=== PATIENT | female | born 1995 | race Caucasian/White ===

== ENCOUNTER 2018-11-09 19:05 | Inpatient (IN) | payer OTHER, SELFPAY ==
[2018-11-09] MEDS: Lactated Ringers 1,000 ML 50 ML IV (20:45)
[2018-11-09 21:17] LABS: Hematocrit 39.2 % (37-47); Hemoglobin 13.1 g/dl (12.0-15.0); Mean Corp Hgb Conc 33.4 g/gl (32-36); Mean Corpuscular Hgb 29.5 pg (27.0-32.0); Mean Corpuscular Volume 88.3 fL (81-99); Mean Platelet Vol. 10.3 fl (6.2-12.0); Platelet Count 236 K/mm3 (150-450); RBC Distribution Width CV 12.8 % (11.6-14.6); RBC Distribution Width SD 41.2 fl (35.1-43.9); Red Blood Count 4.44 M/mm3 (4.2-5.4)
[2018-11-09 21:22] LABS: Scan Indicated on CBC? Y/N NO
[2018-11-09] MEDS: miSOPROStol 25 MCG TABLET VAGINAL (21:38)
[2018-11-09] MEDS: Mag Hydrox/Al Hydrox/Simeth 30 ML UDC PO (22:03)
[2018-11-10] MEDS: miSOPROStol 25 MCG TABLET VAGINAL (01:51)
--- NOTE | 2018-11-10 10:04 | HP.PCM_ITS ---
- Problem List (1) Post-dates Status: Acute (2) Rh negative status during Status: Chronic (3) Depression affecting in third trimester, antepartum Status: Chronic History Date of Admission: 11/09/18 Final FLAVIO: 11/01/18 Final FLAVIO Source: US <20 weeks Gestational age: 41 Weeks and 2 Days History of this : This is a 23 year-old, G [], P [], at 41 weeks gestational age. Allergies latex Allergy (Verified 11/09/18 21:39) Rash tree nut Allergy (Verified 11/09/18 21:39) Anaphylaxis Home Medications: Home Medications Vits [Prenatabs FA] 1 tablet PO DAILY 11/09/18 Smoking Status: Never smoker Alcohol: None Number of Fetus(es): 1 Heart Tracin baseline, moderate variability, + accels, no decels. Overnight 2 minute prolonged variable decel with shree to 120 noted, spontaneous recovery. TOCO Analysis: Irregular ctx at IOL initiation, palpate mild to moderate. Currently ctx q 3-4 minutes, palpate mild to moderate in strength History Past Pregnancies: Past Pregnancies Delivery Date Name GA/Weeks Outcome Route Weight Gender Labor Length Anesthesia Delivery Location Provider FOB Labs: HIV NR, HepBsAG Neg, T+S = O Neg, CBC = 12.7/39.0, Syphilis - Neg, Rubella Immune, GC/CT = Neg/ Neg, Urine Tox Neg, Urine culture Neg in 1st trimester and then +>100,000 E. Coli in 3rd trimester - treated, 1 hour GCT= 87, GBS Neg Expected Delivery Method: Spontaneous Vaginal Describe any other labor & delivery plans:: Desires Nitrous Oxide during Vaginal Exam, Planning for an Epidural Number of Visits: 16 Review of Systems Constitutional: Denies: Chills, Fever, Weight Change HEENT: Denies: Head Aches, Sinus Congestion, Sinus Drainage Cardiovascular: Denies: Chest Pain, Palpitations Respiratory: Denies: Cough, Shortness of breath at rest, Sputum production Gastrointestinal: Denies: Nausea, Vomiting Genitourinary: Denies: Dysuria, Frequency, Urgency Gynecological: Denies: Vaginal discharge Musculoskeletal: Denies: Joint Pain, Joint Tenderness Skin: Denies: Rash, Wounds Neurological: Denies: Numbness, Tingling, Focal weakness Psychiatric: Denies: Anxiety, Depression, Homicidal Ideations, Suicidal Ideations Hematologic/ Lymphatic: Denies: Easy Bruising, Easy Bleeding Physical Exam Vitals: See Nursing Note for Vitals - VSS, Afebrile General: Alert, Oriented x3 HEENT: Atraumatic Cardiovascular: Regular rate, Regular Rhythm Lungs: Normal air movement Abdomen: Non Tender, Gravid Extremities:: No edema Neurological: Cranial nerves II-XII grossly intact, Deep Tendon Reflexes 2+/4 and Symmetrical MANAGER PERFORMANCE IMPROVEMENT: Normal external genitalia Estimated gestational size: Appropriate for gestational size Presentation: Cephalic Cervix Dilation (cm): 2.5 - On admission - pateint was /-4 per RN Station: -2 Effacement (%): 80 Assessment/Plan All Active Problems Post-dates (Acute) This is a 23 year-old, G [1], P [0], at 41 weeks gestational age, IOL Postdates, Category I-II FHT. P: 1) Patient admitted last night by Dr. Herb MONZON, Dr. Ortiz OB back-up physician for this provider notified of admission and patient status 2) Pitocin IV per protocol for labor augmentation 3) Encourage PO hydration and ambulation 4) Reassess cervix PRN with changes in maternal and status Carmela Yin APRN-YUSEF
[2018-11-10] MEDS: Oxytocin 30 units/NS 500 ml 30 UNITS/500 ML IV.SOLN IV (10:25)
--- NOTE | 2018-11-10 13:38 | PCM.PN.BLA ---
Progress Note S: Patient sitting up at the bedside, moving freely around room and oscillating between bed and birthing ball. Patient moving easily during contractions. Pitocin IV for labor augmentation still infusing, currently at 5 milliunits/min. Patient planning an epidural but declines having one placed at this time. O: VSS, Afebrile FHT baseline 145, mild to moderate variability, + accels, occasional early decels noted CTx q 2-4 minutes, lasting 60 seconds, palpate mild to moderately strong SVE = Deferred at this time, patient declines exam A: IOL @ 41+2 weeks, Pitocin Labor Augmentation, Category I-II FHT P: 1) Continue present management 2) Epidural on request 3) SVE per patient request or PRN with change in maternal or status Carmela Yin APRN-YUSEF
[2018-11-10] MEDS: Lactated Ringers 1,000 ML 50 ML IV ×2 (16:30→20:09)
--- NOTE | 2018-11-10 17:10 | PCM.PN.OB ---
Patient Problems: Active and Suspected Problems Post-dates (Acute) Subjective: Patient comfortable after receiving epidural. Decision mutually made to check patient's cervix at this time. IV pitocin is currently at 7 milliunits and patient has been fam regularly over last 2-3 hours. Objective: VSS, Afebrile Baby LOP by Feliz'kayden, EFW 8# FHT baseline 150, moderate variability, rare accels, rare early decels noted Ctx q 2-3 minutes, palpate moderate to strong SVE = 5-6/90/-2, BBOW - Physical Exam General: Alert, Oriented x3 Lungs: Normal air movement Cardiovascular: Regular rate, Regular Rhythm Abdomen: Non Tender, Gravid Extremities: No edema Psych/Mental Status: Normal Affect, Appropriate Weight: 175 lb 4.28 oz Body Mass Index (BMI) 30.0 Intake and Output for Last 24 Hours 11/08/18 11/09/18 11/10/18 23:59 23:59 23:59 Intake Total 600 / 600 993 / 993 Output Total 500 / 500 Balance 600 / 600 493 / 493 Laboratory Tests Past 24 Hrs 11/09/18 11/09/18 11/09/18 20:45 20:45 20:45 WBC 12.0 H RBC 4.44 Hgb 13.1 Hct 39.2 MCV 88.3 MCH 29.5 MCHC 33.4 RDW 12.8 RDW Differential 41.2 Plt Count 236 MPV 10.3 Blood Type O NEGATIVE Antibody Screen TNP Cancelled 11/09/18 20:45 WBC RBC Hgb Hct MCV MCH MCHC RDW RDW Differential Plt Count MPV Blood Type TNP Antibody Screen NEGATIVE Medical Necessity - Tobacco Use Smoking Status: Never smoker Assessment/Plan All Active Problems Post-dates (Acute) 23 y/o @ 41+2weeks, Category I Tracing, Active Labor, Pitocin Labor Augmentation P: 1) Continue present management 2) Titration of IV pitocin if needed 3) Dr. Ortiz back-up OB notified of patient status Carmela ROLLE
[2018-11-10] MEDS: Ondansetron 4 MG/2 ML Vial IV (18:05)
--- NOTE | 2018-11-10 19:53 | PCM.PN.OB ---
Patient Problems: Active and Suspected Problems Post-dates (Acute) Subjective: Patient remains comfortable with epidural, decision mutually made to check patient's cervix at this time. Objective: FHT baseline 145, moderate variability, + accels, rare late decel, occasional early decel noted Ctx q 2-3 minutes, palpate strong SVE = 9.5/100/-1, BBOW --> AROM for clear fluid - Physical Exam General: Alert, Oriented x3, Cooperative HEENT: Atraumatic, Normocephalic Neck: Supple, No JVD, Negative Carotid Bruits Lungs: Normal air movement Cardiovascular: Regular rate, No murmurs Abdomen: Soft, Gravid - Baby CELIA at this time by Ada, EFW = 8# Extremities: No edema, Capillary Refill Less than 3 Seconds Skin: No rashes, No breakdown Musculoskeletal: No Tenderness to Palpation of Joints or Extremities Neurological: Cranial nerves II-XII grossly intact Psych/Mental Status: Normal Affect, Appropriate Weight: 175 lb 4.28 oz Body Mass Index (BMI) 30.0 Intake and Output for Last 24 Hours 11/08/18 11/09/18 11/10/18 23:59 23:59 23:59 Intake Total 600 / 600 3276 / 3276 Output Total 1300 / 1300 Balance 600 / 600 1975 / 1975 Laboratory Tests Past 24 Hrs 11/09/18 11/09/18 11/09/18 20:45 20:45 20:45 WBC 12.0 H RBC 4.44 Hgb 13.1 Hct 39.2 MCV 88.3 MCH 29.5 MCHC 33.4 RDW 12.8 RDW Differential 41.2 Plt Count 236 MPV 10.3 Blood Type O NEGATIVE Antibody Screen TNP Cancelled 11/09/18 20:45 WBC RBC Hgb Hct MCV MCH MCHC RDW RDW Differential Plt Count MPV Blood Type TNP Antibody Screen NEGATIVE Medical Necessity - Tobacco Use Smoking Status: Never smoker Assessment/Plan All Active Problems Post-dates (Acute) A: 23 y/o @ 41+2 weeks, Transition stage of Labor, Category I-II FHT P: 1) Continue present management 2) Anticipate Carmela Yin APRN-YUSEF
--- NOTE | 2018-11-10 23:07 | PCM.PN.BLA ---
Progress Note Patient found to be C/C/0 + 1 station, started to push with patient at 2201. Consecutive late decels noted. Patient repositioned, fluid bolus given, pitocin turned off and O2 mask applied. Dr. Ortiz updated on patient status and heart rate tracing at this time. O: VSS, Afebrile. Last temp = 98.9 F FHT baseline 160, mild to moderate variability, + accels, consecutive late decels noted. Resolve when patient is not pushing and improve with position changes to sidelying Ctx q 2 minutes, palpate strong SVE = C/C/+1 A: 23 y/o @ 41+2weeks, Second Stage of Labor, Category II Tracing P: 1) Dr. Ortiz updated on tracing, will continue to push with patient at this time 2) Anesthesia to room to turn down patient's epidural 3) Encourage position changes - side-lying, H+K and upright positioning encouraged 4) Anticipate 5) If worsening persistent late decels noted or decreased variability, plan for LTCS Carmela ROLLE
--- NOTE | 2018-11-10 23:57 | PN_ITS ---
Progress Note called by YUSEF Yin to evaluate patient- persistent late decelerations with recent onset of tachycardia. pt is still FD/100/+1 station- i reviewed with patent that she is still remote from delivery and head I do not feel is low enough to perform vacuum extraction. I counseled patient on risks of c/s including but not limted to bleeding, infection, injury to pelvic structures including bladder and bowel and vessels. we also reviewed possible need for Push up of head from vagina and potential trauma to . pt and a gree to proceed.
[2018-11-11] VITALS (22 sets, daily range): BP systolic 93–110; BP diastolic 43–61; PULSE 75–102; RESP 15–18; TEMP 36.4–37.4; O2SAT 94–99
[2018-11-11] MEDS: Oxytocin 30 units/NS 500 ml 30 UNITS/500 ML IV.SOLN 167 UNITS IV (00:20)
--- NOTE | 2018-11-11 00:43 | PCM.IMED.CSR ---
[facility] PostOp Date of Procedure: 11/11/18 Primary Surgeon/Physician: Lana Jeffery MD oracle data warehouse developer: Alfredo Gordon Pre-op Diagnosis: Distress Post-Op Diagnosis: Distress Surgery/Procedure Performed: Primary low transverse Section Description of Surgical Findings:: Pt was complete and pushing - intolerance - persistent category 2 tracing with mild to mod variability, recurrent late decelerations and new onset tachycardia at 170s. Operative note: After informed consent was obtained the patient was taken the operating room. She was then placed in the supine position. She was prepped and draped in the normal sterile fashion. Epidural Anesthesia was found to be adequate. At this time a Pfannenstiel skin incision was made with a knife was carried down to the underlying layer of the fascia. The fascial incision was then extended laterally using curved Adams scissor. Attention was then turned to the superior aspect of the fascial edge which was grasped with 2 straight Keenan clamps tented up and the rectus muscle dissected off sharply using curved Adams scissor. Attention was then turned to the inferior aspect where again [place] clamps were placed in the rectus muscles were tented up and the fascia was dissected off sharply using the curved Adams scissor. Rectus muscles were then in the midline bluntly and peritoneum was entered bluntly. Gentle opposing traction was placed. At this time the vesicouterine peritoneum was identified. Vesicouterine peritoneum identified and bladder flap created. Scalpel was used to make a uterine incision in a low transverse fashion. The uterus was then entered bluntly gentle opposing traction was placed to extend this incision. Membranes were noted to be clear. with assistance from push up from below to disengage the head the Infant's head was brought to the uterine incision was delivered atraumatically. was vigorous so delayed cord clamping performed. Cord was clamped and cut infant was handed to the waiting nursery team. The Placenta was removed from the uterus. The uterus was then removed from the abdominal cavity. The uterus was cleared of all clots and debris using a lap. At this time the uterine incision was reapproximated using #1 Vicryl in a running locked fashion. followed by a second imbricating layer. Hemostasis was appreciated. Posterior cul-de-sac was then cleared of all clots and debris. Uterus was placed back in the abdominal cavity. Gutters were cleared of all clots and debris. Uterine incision was reevaluated and noted to be of excellent hemostasis. Brandy placed. At this time the peritoneum was grasped with Kellys reapproximated using #2 Vicryl suture in a running fashion. Muscles then reapproximated using #2 Vicryl in a interrupted mattress suture fashion. Brandy placed over muscle. Fascia was then reapproximated using #1 Vicryl in a running fashion. Subcu layer was reapproximated with #2 0 plain gut suture in an interrupted fashion. Subcu layer was closed using 4-0 vicryl in a Vivek needle in a subcu fashion. Dry sterile dressing was applied. Instrument lap needle count correct ?2. Anticipated normal postoperative course. Estimated Blood Loss: 700 Specimens Removed: placenta Drain: Bauer to straight drain Type of Anesthesia: Epidural - Admit VTE Documentation VTE Present on Admission: Yes VTE Mechan Device Prophylaxis: SCD's VTE Pharm Prophylaxis ordered?: Yes
[2018-11-11] MEDS: Lactated Ringers 1,000 ML 100 ML IV ×2 (01:31→12:19)
[2018-11-11 04:26] LABS: Hematocrit 32.4 % (37-47); Hemoglobin 10.7 g/dl (12.0-15.0); Mean Corpuscular Hgb 29.7 pg (27.0-32.0); Platelet Count 199 K/mm3 (150-450); RBC Distribution Width CV 12.6 % (11.6-14.6); RBC Distribution Width SD 40.3 fl (35.1-43.9); Scan Indicated on CBC? Y/N NO; White Blood Count 16.3 K/mm3 (4.4-11.0)
[2018-11-11] MEDS: 0.9% Saline Lock 10 ML Syringe IV (06:23)
[2018-11-11] MEDS: Ketorolac 30 MG/ML Syringe IV ×3 (06:23→17:31)
[2018-11-11] MEDS: Enoxaparin 40 MG/0.4 ML Syringe SC (10:38)
[2018-11-11] MEDS: Acetaminophen 500 MG Tablet 1000 MG PO (12:20)
--- NOTE | 2018-11-11 15:04 | PCM.PN.OB ---
Patient Problems: Active and Suspected Problems Post-dates (Acute) Delivery by section of full-term (Acute) Subjective: Patient sitting up in chair at bedside, visiting with family and friends. Patient reports pain is well-controlled at this time. Denies any other issues at this time. Objective: See Nursing Note - VSS, Afebrile Nipples without cracks, blisters, no erythema Abdomen dressing dry and intact, FF midline 2FB below umbilicus Scant to Small Rubra Lochia negative calf tenderness to palpation - Physical Exam General: Alert, Oriented x3 HEENT: Atraumatic, Normocephalic Lungs: Normal air movement Cardiovascular: Regular rate, Regular Rhythm Abdomen: Non Tender, Non-Distended, - - dressing dry and intact Extremities: No Calf Tenderness, Edema - +1 pedal edema, non-pitting. Feet elevated on this time Skin: No rashes, No breakdown Neurological: Cranial nerves II-XII grossly intact Psych/Mental Status: Normal Affect, Appropriate Vital Signs Temp Pulse Resp BP Pulse Ox 99.4 F H 99 18 94/50 L 98 11/11/18 12:05 11/11/18 12:05 11/11/18 14:05 11/11/18 12:05 11/11/18 14:05 Oxygen Delivery Method Room Air Weight: 175 lb 4.28 oz Body Mass Index (BMI) 30.0 Intake and Output for Last 24 Hours 11/09/18 11/10/18 11/11/18 23:59 23:59 23:59 Intake Total 600 / 600 3276 / 3276 296 / 296 Output Total 1300 / 1300 2150 / 2150 Balance 600 / 600 1975 / 1975 -1854 / -1854 Laboratory Tests Past 24 Hrs 11/11/18 11/11/18 04:00 04:00 WBC 16.3 H RBC 3.60 L Hgb 10.7 L Hct 32.4 L MCV 90.0 MCH 29.7 MCHC 33.0 RDW 12.6 RDW Differential 40.3 Plt Count 199 MPV 10.0 Screen NEGATIVE Baby's Blood Type O POSITIVE Baby's KRIS NEGATIVE Medical Necessity - Tobacco Use Smoking Status: Never smoker Assessment/Plan All Active Problems Post-dates (Acute) Delivery by section of full-term infant (Acute) 23 y/o now, s/p primary LTCS for persistent Category II tracing during 2nd stage with new onset tachycardia and decreased variability, PPD #0 P: 1) Continue PP orders at this time 2) Consultation Carmela ROLLE
[2018-11-12 00:36] VITALS: BP 110/54; PULSE 93; RESP 15; TEMP 36.8; O2SAT 100
[2018-11-12] MEDS: Ketorolac 30 MG/ML Syringe IV ×5 (00:43→23:53)
[2018-11-12] MEDS: 0.9% Saline Lock 10 ML Syringe IV ×3 (00:44→18:10)
[2018-11-12] MEDS: oxyCODONE 5 MG Tablet PO ×2 (00:49→15:13)
[2018-11-12 03:50] VITALS: BP 98/54; PULSE 74; RESP 14; TEMP 36.5; O2SAT 96
[2018-11-12 08:00] VITALS: BP 90/48; PULSE 76; RESP 18; TEMP 36.9
--- NOTE | 2018-11-12 08:02 | PCM.PN.OB ---
Patient Problems: Active and Suspected Problems Delivery by section of full-term (Acute) Post-dates (Acute) Subjective: pt seen up to chair- doing well. pt reports good pain control. lochia mild. breast feeding well. Pt reports no flatus and no bm but feels gas pain moving. pt reports tolerating regular diet. Denies other concerns this morning. - Physical Exam General: Alert, Oriented x3 Abdomen: Soft, Non-Distended, - - fundus firm. incision dressing one area with old sanginous drainage- non expanding past pen line. Extremities: No Calf Tenderness Vital Signs Temp Pulse Resp BP Pulse Ox 97.7 F L 74 14 98/54 L 96 11/12/18 03:50 11/12/18 03:50 11/12/18 03:50 11/12/18 03:50 11/12/18 03:50 Oxygen Delivery Method Room Air Weight: 79.5 kg Body Mass Index (BMI) 30.0 Intake and Output for Last 24 Hours 11/10/18 11/11/18 11/12/18 23:59 23:59 23:59 Intake Total 3276 / 3276 2509 / 2509 83 / 83 Output Total 1300 / 1300 4700 / 4700 1200 / 1200 Balance 1975 / 1975 -2191 / -2191 -1117 / -1117 Medical Necessity - Tobacco Use Smoking Status: Never smoker Assessment/Plan All Active Problems Delivery by section of full-term infant (Acute) Post-dates (Acute) POD#1, doing well routine care pain mgmt ambulation
--- NOTE | 2018-11-12 08:08 | DCINST_ITS ---
Discharge Diet: No Restrictions Discharge Activity: Return to Normal Activity, May Not Drive - for 2 weeks, May not drive while taking narcotic pain medications., May Shower, May Take a Tub Bath - in 7 days. May resume sexual activity in: 4-6 weeks Lifting Restrictions: 20 pounds Additional Activity Instructions:: Nothing in the vagina for 4-6 weeks. You may return to work/school in 6 weeks. Call your doctor if your incision/area has: Continuous Slow Oozing, Sudden Increased Bleeding, Increased Pain/ Swelling, Increased Redness, Foul Smelling Discharge Call your doctor if you observe: Fever of 101 or Higher, Using more than one pad per hour - for 2 hours Suture Line Care: Avoid Pulling/Pushing, Avoid Pinching/Bending Cleanse incision/area with: Keep Dressing Clean & Dry, - - remove dressing on post op day #7 unless indicated sooner Additional Instructions: If you experience any of the following, contact your healthcare provider. * Bleeding that soaks a pad every hour for 2 hours * Fever 100.4 or higher * Unrelieved incision or abdominal pain * Swelling, redness, discharge or bleeding from your incision or episiotomy site * Your incision begins to separate * Problems urinating (including inability to urinate or burning while urinating). * Visual changes * Severe headache * Flu-like symptoms * Pain or redness in one of both of your breasts * Pain, warmth, tenderness or swelling in your legs, especially the calf area * Frequent nausea and vomiting * Symptoms of depression or anxiety If you experience any of the following, call 911 or go to the nearest Emergency Room. * Chest pain * Problems breathing * Seizure activity * Partial or complete paralysis of a body part, slurred speech, weakness or drooping of the face, or a sudden inability to walk or hold your balance Allergies/Adverse Reactions: Allergies latex Allergy (Verified 11/09/18 21:39) Rash tree nut Allergy (Verified 11/09/18 21:39) Anaphylaxis Medications to take at Discharge Vits [Prenatabs FA] 1 tablet PO DAILY 11/09/18 Ibuprofen [Motrin] 600 mg PO Q6H PRN PRN #60 tablet 11/12/18 Oxycodone HCl/Acetaminophen [Percocet 5/325] 1 tablet PO Q6H PRN PRN 7 Days #28 tablet 11/12/18 Senna/Docusate Sodium [Senokot-S] 1 - 2 tablet PO DAILY PRN #30 tablet 11/12/18 SimETHICONE [Mylicon] 80 mg PO PCHS PRN #30 tablet 11/12/18 The following prescriptions were given: Ibuprofen [Motrin] 600 mg PO Q6H PRN PRN #60 tablet PRN Reason: Mild Pain (-01/20) Oxycodone HCl/Acetaminophen [Percocet 5/325] 1 tablet PO Q6H PRN PRN 7 Days #28 tablet PRN Reason: Pain Senna/Docusate Sodium [Senokot-S] 1 - 2 tablet PO DAILY PRN #30 tablet PRN Reason: Constipation SimETHICONE [Mylicon] 80 mg PO PCHS PRN #30 tablet PRN Reason: Indigestion/stomach pain Follow-Up: Call to make an appointment with your doctor for an incision check in 1-2 weeks. You will also need a 6 week post- follow up appointment. Test results from this visit will be discussed in further detail at your follow- up appointment, if applicable. Please Follow Up With: Lana Jeffery MD - Call to make an appointment for an incision check in 1-2 [phone] When: You will need a post- check in 6 weeks. Primary Care Physician: Care Physician,No Primary [Primary Care Provider] -
[2018-11-12 14:19] VITALS: BP 104/62; PULSE 100; RESP 18; TEMP 36.7
--- NOTE | 2018-11-12 18:06 | NURSING ---
1700 Pump given as per approved by her insurance for a home breast pump. Instructions given. Henny
[2018-11-12 20:25] VITALS: BP 103/64; PULSE 97; RESP 16; TEMP 36.6; O2SAT 98
[2018-11-13 02:15] VITALS: BP 97/53; PULSE 80; RESP 14; TEMP 36.6; O2SAT 100
[2018-11-13 08:15] VITALS: BP 105/63; PULSE 83; RESP 18; TEMP 36.7
[2018-11-13] MEDS: Ibuprofen 600 MG Tablet PO (08:23)
--- NOTE | 2018-11-13 08:29 | PCM.PN.OB ---
Patient Problems: Active and Suspected Problems Delivery by section of full-term (Acute) Post-dates (Acute) Subjective: pt seen at bedside, doing well. pt reports good pain control but has more nipple discomfort from breast feeding. Lochia mild Passing flatus. - Physical Exam General: Alert, Oriented x3 Abdomen: Soft, Non-Distended, - - fundus firm. Incision dressing intact- still with same area- non expaning of sanginous discharge Extremities: No Calf Tenderness Vital Signs Temp Pulse Resp BP Pulse Ox 97.9 F 80 14 97/53 L 100 11/13/18 02:15 11/13/18 02:15 11/13/18 02:15 11/13/18 02:15 11/13/18 02:15 Oxygen Delivery Method Room Air Weight: 79.5 kg Body Mass Index (BMI) 30.0 Intake and Output for Last 24 Hours 11/11/18 11/12/18 11/13/18 23:59 23:59 23:59 Intake Total 2509 / 2509 83 / 83 Output Total 4700 / 4700 1200 / 1200 Balance -2191 / -2191 -1117 / -1117 Medical Necessity - Tobacco Use Smoking Status: Never smoker Assessment/Plan All Active Problems Delivery by section of full-term (Acute) Post-dates (Acute) POD#2, doing well routine care dc home requested pain mgmt
--- NOTE | 2018-11-13 08:35 | PCM.DC.BLA ---
Discharge Summary Date of Admission: 11/10/18 Date of Discharge: 11/13/18 Summary: pt was admitted for IOL - progressed to fully dilated however had a persistent category 2 tracing. pt underwent uncomplicated primary LTCS- had normal post operative course. Discharged home on POD#2. Patient Problems: Active and Suspected Problems Delivery by section of full-term infant (Acute) Post-dates (Acute) - Physical Exam Vital Signs Temp Pulse Resp BP Pulse Ox 97.9 F 80 14 97/53 L 100 11/13/18 02:15 11/13/18 02:15 11/13/18 02:15 11/13/18 02:15 11/13/18 02:15 Oxygen Delivery Method Room Air Weight: 79.5 kg Body Mass Index (BMI) 30.0 Intake and Output for Last 24 Hours 11/11/18 11/12/18 11/13/18 23:59 23:59 23:59 Intake Total 2509 / 2509 83 / 83 Output Total 4700 / 4700 1200 / 1200 Balance -2191 / -2191 -1117 / -1117
[2018-11-13 14:22] VITALS: BP 115/56; PULSE 100; RESP 16; TEMP 36.5
== END 2018-11-13 14:45 | disposition home or self-care (01) | DRG 788 ==
PROVIDERS: Obstetrics & Gynecology; Admitting Provider Obstetrics & Gynecology; Referring Provider Obstetrics & Gynecology; Visit Provider Obstetrics & Gynecology
DX: O48.0 Post-term pregnancy (principal); Z3A.41 41 weeks gestation of pregnancy; O76 Abnormality in fetal heart rate and rhythm complicating labor and delivery; Z37.0 Single live birth
CPT/HCPCS: 59025; 59050; 85027; 85461; 86850; 86900; 86901; 90384; 99218; J7120; 90686; A4216; G0378; J2405; J2790